=== PATIENT | female | born 1955 ===

== ENCOUNTER 2023-01-01 06:32 | Day surgery (SDC) | payer OTHER ==
[~2023-01-01 06:32] MED LIST: CARBATROL100 MG PO; COZAAR50 MG PO; FLONASE16 GM; LEVOTHYROXINE25 MCG PO; LIPITOR20 MG PO; MONTELUKAST SOD10 MG PO; NORVASC2.5 MG PO; PROTONIX40 MG PO; SYMBICORT 16010.2 GM IH
[2023-01-01] MEDS ORDERED: IBU600 MG PO (12:35)
== END 2023-01-01 14:55 | disposition home or self-care (01) ==
LOC: CIR.AMB 06:32
PROVIDERS: ATTEND Obstetrics & Gynecology Gynecology
DX: N84.0 Polyp of corpus uteri (principal); N95.0 Postmenopausal bleeding; Z91.02 Food additives allergy status; Z20.822 Contact with and (suspected) exposure to COVID-19

== ENCOUNTER 2024-10-02 06:24 | Day surgery (SDC) | payer OTHER ==
[2024-09-24 14:10] VITALS: BP 160/79
[~2024-10-02] VITALS: Ht 165.1 cm; Wt 71.7 kg
[~2024-10-02 06:24] MED LIST changes: +IBU600 MG PO
[2024-10-02] MEDS ORDERED: KETOROLAC TROMETHAMINE 30 MG VIAL IV STA (09:05)
== END 2024-10-02 11:30 | disposition home or self-care (01) ==
LOC: CIR.AMB 06:24
PROVIDERS: ATTEND Obstetrics & Gynecology
DX: N85.02 Endometrial intraepithelial neoplasia [EIN] (principal); N95.0 Postmenopausal bleeding; D25.9 Leiomyoma of uterus, unspecified; N84.1 Polyp of cervix uteri